=== PATIENT | female | born 1955 | race Caucasian/White ===

== ENCOUNTER 2023-10-17 14:49 | Emergency (ER) | payer OTHER, SELFPAY ==
[2023-10-17 14:52] VITALS: BP 143/67; PULSE 85; RESP 14; O2SAT 100; BMI 21.5
--- NOTE | 2023-10-17 15:12 | DI.RAD.S_ITS ---
PROCEDURE: XR KNEE LT 3V INDICATIONS: fall with swelling and partial weight bear TECHNIQUE: 3 views of the knee were acquired. COMPARISON: None. FINDINGS: Bones: Transverse mildly displaced and comminuted patellar fracture.. No suspicious bony lesions. Soft tissues: Moderate lipohemarthrosis. No suspicious soft tissue calcifications. IMPRESSION: Transverse mildly displaced and comminuted patellar fracture. Dictated by: Yannick Booth M.D. on 10/17/2023 at 16:19 Approved by: Yannick Booth M.D. on 10/17/2023 at 16:22
--- NOTE | 2023-10-17 15:12 | DI.RAD.S_ITS ---
PROCEDURE: XR HAND LT MIN 3V INDICATIONS: fall with swelling and partial weight bear TECHNIQUE: 3 views of the hand(s) acquired. COMPARISON: None. FINDINGS: Bones: No fractures or dislocations. 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 No suspicious bony lesions. Soft tissues: No suspicious soft tissue calcifications. IMPRESSION: No acute osseous abnormality. If pain persists with conservative management, consider repeat x-ray in 10-14 days or cross-sectional imaging. Dictated by: Yannick Booth M.D. on 10/17/2023 at 16:19 Approved by: Yannick Booth M.D. on 10/17/2023 at 16:19
--- NOTE | 2023-10-17 17:30 | PC.NURSE ---
Fall on left knee, reports able to partially bear weight but painful. Decrease ROM per patient. CMS intact
--- NOTE | 2023-10-17 18:06 | ED.LOWEXIN ---
HPI - Extremity Injury (Lower) General Chief Complaint: Extremity Injury, Lower Stated Complaint: fall, unable to stand Time Seen by Provider: 10/17/23 18:06 Source: patient, RN notes reviewed and old records reviewed Mode of arrival: Wheelchair Limitations: no limitations History of Present Illness HPI Narrative: 68-year-old female with history of hypothyroidism who presents with complaint of fall at the [employer] pit at [facility] at 2:00 p.m. today. Patient accidentally stepped off the edge into the pit fell onto her left knee, left hand and wrist her right cheek and right hip. Can partially weightbear on her left leg is held in extension. Can not flex her leg and bear weight. Has a little bit of hip pain but able to move and walk without issue. She describes pain in the lateral side of her left hand but full range of motion. States she did hit her cheek. No loss of consciousness, no headache, no neck pain, no back pain, no chest pain or shortness of breath. No nausea or vomiting. No other GI or urinary symptoms. No numbness tingling or weakness described. Patient does not take any anticoagulants. She has had a prior meniscal repair on the right knee. Allergic to penicillin and sulfa. Patient lives in [place] we will be in the area for the next week. Does have some options for contact with Orthopedics in [place] where she lives. Related Data Previous Rx's Medication Instructions Recorded oxycodone 5 mg tablet 5 mg PO Q6H PRN pain #20 tabs 10/17/23 Allergies Allergy/AdvReac Type Severity Reaction Status Date / Time Penicillins Allergy Verified 10/17/23 17:02 Sulfa (Sulfonamide Allergy Verified 10/17/23 17:02 Antibiotics) Review of Systems Review of Systems ROS Unobtainable: All systems reviewed & are unremarkable except as noted in HPI and below Patient History Social History Smoking Status: Never smoker Smoking Status: Never smoker alcohol intake frequency: a few times a week Substance Use Type: does not use Exam Narrative Exam Narrative: GEN: Patient appears in mild distress. HEAD: No evidence of trauma, no raccoon/Hyman sign. NECK: Nontender, painless range of motion, trachea midline Negative Nexus criteria, no midline line tenderness, distracting injury, altered mental status, neuro deficit, recent EtOH. EYES: PERRLA, EOMI ENT: External inspection normal, trachea is midline, Nares are clear, no septal hematoma, no dental or oral injury, airway is normal and with normal occlusion, No bony tenderness RESP: Chest is nontender and has symmetric movement, no ecchymosis, breath sounds are normal no crackles, wheezes or rales CVS: Heart sounds are normal, no murmur noted, No JVD. ABG/GI: Nontender, soft, normal bowel sounds, no distention, no organomegaly, pelvic rock is negative. NEURO: Oriented AOx3, neuro is grossly intact, sensation and motor is normal all 4 extremities moving, cranial nerves II through XII are intact, GCS is 15 PSYCH: Normal mood and affect SKIN: Intact, warm and dry, no crepitus and without decubitus BACK: No CVA tenderness, no vertebral tenderness, no step-off's, no crepitus EXT: Atraumatic patient has some mild swelling in the lateral portion of the hand no ecchymosis, good range of motion with no discrete bony tenderness. Patient had ring on that was removed and placed on her other hand. Hips are nontender, no pedal edema, normal color and temperature, normal range of motion of extremities with normal tendon exam, 2+ pulses in all four extremities. Patient does have pain with swelling over the left knee, no obvious deformity beyond swelling. Patient is tender over the patella. No tibial plateau tenderness, patient does not have any tenderness over the femur or lower extremity. Initial Vital Signs Initial Vital Signs: Vital Signs Pulse Rate 85 10/17/23 14:52 Respiratory Rate 14 10/17/23 14:52 Blood Pressure 143/67 H 10/17/23 14:52 Pulse Oximetry 100 10/17/23 14:52 Oxygen Delivery Method Room Air 10/17/23 14:52 Course Orders Ordered: ED Orders 10/17/23 15:12 XR hand LT min 3V Stat XR knee LT 3V Stat Vital Signs Vital signs: Vital Signs - 8 hr 10/17/23 14:52 10/17/23 18:19 Pulse Rate 85 66 Respiratory Rate 14 16 Blood Pressure 143/67 H 146/68 H Pulse Oximetry 100 98 Oxygen Delivery Method Room Air Room Air MDM - Extremity Injury (Lower) Imaging Data Extremity x-ray #1: Radiologist's Impression: Pravin Nix??68??F??1955 ? Allergy/Adv: Penicillins, Sulfa (Sulfonamide Antibiotics) (More??) Close Knee X-Ray (Signed) EmmyYannick 10/17/23 Hand X-Ray (Signed) EmmyYannick 10/17/23 Launch?[address] [address] XRay Report Signed Patient: Pravin Nix MR#: [id number] : 1955 Acct:[id number] Age/Sex: 68 / F Date of Service: 10/17/23 Loc: ED Accession Number: [id number] Procedure: XR hand LT min 3V Ordering Provider: Tyrell Gonzalez MD PROCEDURE: XR HAND LT MIN 3V INDICATIONS: fall with swelling and partial weight bear TECHNIQUE: 3 views of the hand(s) acquired. COMPARISON: None. FINDINGS: Bones: No fractures or dislocations. 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 No suspicious bony lesions. Soft tissues: No suspicious soft tissue calcifications. IMPRESSION: No acute osseous abnormality. If pain persists with conservative management, consider repeat x-ray in 10-14 days or cross-sectional imaging. Dictated by: Yannick Booth M.D. on 10/17/2023 at 16:19 Approved by: Yannick Booth M.D. on 10/17/2023 at 16:19 Extremity x-ray #2: Radiologist's Impression: Pravin Nix??68??F??1955 ? Allergy/Adv: Penicillins, Sulfa (Sulfonamide Antibiotics) (More??) Close Knee X-Ray (Signed) EmmyYannick 10/17/23 Hand X-Ray (Signed) EmmyYannick 10/17/23 Launch?[address] [address] XRay Report Signed Patient: Pravin Nix MR#: [id number] : 1955 Acct:[id number] Age/Sex: 68 / F Date of Service: 10/17/23 Loc: ED Accession Number: [id number] Procedure: XR knee LT 3V Ordering Provider: Tyrell Gonzalez MD PROCEDURE: XR KNEE LT 3V INDICATIONS: fall with swelling and partial weight bear TECHNIQUE: 3 views of the knee were acquired. COMPARISON: None. FINDINGS: Bones: Transverse mildly displaced and comminuted patellar fracture.. No suspicious bony lesions. Soft tissues: Moderate lipohemarthrosis. No suspicious soft tissue calcifications. IMPRESSION: Transverse mildly displaced and comminuted patellar fracture. Dictated by: Yannick Booth M.D. on 10/17/2023 at 16:19 Approved by: Yannick Botoh M.D. on 10/17/2023 at 16:22 [facility] Narrative Medical decision making narrative: 68-year-old female who had a fall directly onto her knee has a comminuted patellar fracture as a contusion of the hand. Patient was seen by Dr. Salas with Orthopedic surgery here in the department she has in a knee immobilizer with plan for crutches or walker whenever is her preference. Was given a Velcro wrist splint for her hand which had no fracture on imaging but patient does have little bit of discomfort. Dr. Salas reviewed recommendations with the patient and family. Patient was given a disc of her images. Discharge Plan Departure Patient Disposition: Home Clinical Impression: Patellar fracture Instructions: DI for Patella Fracture Activity Restrictions/Additional Instructions: Follow up with Orthopedic surgery, please call your local orthopedic surgeon tomorrow to set up follow-up in the next 7-[address]. [address] Salas discussed with you, you will likely need surgery there is a small chance you may not but meet with Orthopedic surgery she does recommend that you have repair within 1-2 weeks at the latest. You can take Tylenol up to a 1000 mg every 6 hours as needed for pain if inadequate for pain you can take oxycodone 1-2 tablets every 6 hours as needed. This medication can make you sleepy do not drive, perform hazardous activities or make any major decisions while taking it. This medication will make you constipated please take a stool softener once to twice daily until stools are soft and regular. Prescription sent to [facility] in [place]. You can weightbear as tolerated. Continue to use knee immobilizer to keep your leg extended. You can use the wrist splint as needed but can remove this as necessary. Splint Care: Keep splint clean and dry. Elevated affected body part to decrease swelling. OK to use ice pack on the affected body part. Use for 15-20 minutes each time, for 5-6x per day. If you develop worsening pain, numbness, tingling, discoloration of the affected body part, loosen the splint by loosening the CARLOS wrap, and either see your doctor for an urgent re-assessment, or return to the Emergency Department. Return to the Emergency Department for any new or worsening symptoms. Prescriptions: New oxycodone 5 mg tablet 5 mg PO Q6H PRN (Reason: pain) Qty: 20 0RF Referrals: Miscellaneous,MD Alexis [Primary Care Provider] - Denisa Salas MD [Physician] - Stand Alone Forms: Patient Portal/API
[2023-10-17 18:19] VITALS: BP 146/68; PULSE 66; RESP 16; O2SAT 98
== END 2023-10-17 19:07 | disposition home or self-care (01) ==
PROVIDERS: Emergency Provider Emergency Medicine
DX: S82.042A Displaced comminuted fracture of left patella, initial encounter for closed fracture (principal); M79.642 Pain in left hand; W18.30XA Fall on same level, unspecified, initial encounter
CPT/HCPCS: 29125; 73130; 73562; 99283; 99284